=== PATIENT | female | born 1980 | race Caucasian/White ===

== ENCOUNTER 2024-11-18 06:43 | Inpatient (IN) | payer OTHER ==
[~2024-11-18] VITALS: Ht 162.6 cm; Wt 78.9 kg
[2024-11-18] MEDS: ONDANSETRON HCL 4MG/2ML INJ IV ONE (07:35)
[2024-11-18] MEDS: LACTATED RINGERS 1,000 ML IV SCH (07:35)
[2024-11-18 07:53] LABS: CREATININE 0.8 mg/dL (0.6-1.0); UREA NITROGEN BLOOD 15 mg/dL (9-23)
[2024-11-18 07:54] LABS: TROPONIN I HIGH SENSITIVITY < 4 ng/L (3.0-34)
[2024-11-18 07:55] LABS: ASPARTATE AMINOTRANSFERASE 20 IU/L (<34); BILIRUBIN DIRECT < 0.1 mg/dL (<=3.0); BILIRUBIN TOTAL 0.2 mg/dL (0.1-1.0)
[2024-11-18 07:56] LABS: BASOPHILS % 0.6 % (0.0-2.0); EOSINOPHILS % 2.3 % (0.0-5.0); HEMATOCRIT. 41.4 % (36.0-48.0); HEMOGLOBIN. 14.0 g/dL (12.0-16.0); LYMPHOCYTES % 21.9 % (20.0-50.0); MEAN PLATELET VOLUME 7.8 fl (7.4-10.4); MONOCYTES % 6.6 % (2.0-8.0); NEUTROPHILS % 68.6 % (40.0-76.0); PLATELET 255 x1000/uL (130-400); PROTEIN TOTAL 6.8 g/dL (6.0-8.3); RED BLOOD CELL COUNT 4.41 mill/uL (4.2-5.4); RED CELL DISTRIBUTION WIDTH 13.1 % (11.6-14.6)
[2024-11-18 08:00] LABS: HCG SCREEN NEGATIVE
[2024-11-18 09:30] VITALS: BP 99/53; PULSE 66; RESP 18; TEMP 36.3068
[2024-11-18] MEDS ORDERED: CLONIDINE 0.1MG TABLET PO PRN (09:30)
[2024-11-18] MEDS ORDERED: MAGNESIUM/ALUMINUM HYDROXIDE/SIMETHICONE 30ML UDC PO PRN (09:30)
[2024-11-18] MEDS ORDERED: DOCUSATE SODIUM 100MG CAPSULE PO PRN (09:30)
[2024-11-18] MEDS ORDERED: GUAIFENESIN 200MG/10ML SUGAR FREE UDC PO PRN (09:30)
[2024-11-18] MEDS ORDERED: ONDANSETRON HCL 4MG/2ML INJ IV PRN (09:30)
[2024-11-18] MEDS ORDERED: IPRATROPIUM/ALBUTEROL 0.5-3(2.5)MG/3ML NEB HHN PRN (09:30)
[2024-11-18] MEDS ORDERED: ACETAMINOPHEN 325MG TABLET PO PRN ×2 (09:30)
[2024-11-18] MEDS: SERTRALINE HCL 50MG TABLET PO SCH (10:00)
[2024-11-18] MEDS ORDERED: LORAZEPAM 2MG/ML UD SYRINGE IV PRN (10:15)
[2024-11-18 13:08] LABS: PHOSPHORUS 2.6 mg/dL (2.5-4.9)
[2024-11-18 16:00] VITALS: BP 113/69; PULSE 60; RESP 18; TEMP 36.2; O2SAT 98
[2024-11-18 17:40] LABS: TROPONIN I HIGH SENSITIVITY < 4 ng/L (3.0-34)
[2024-11-18] MEDS ORDERED: TRAZ-251 PO (18:48)
[2024-11-18] MEDS ORDERED: SERT25TA PO (18:48)
[2024-11-18 20:00] VITALS: BP 119/76; PULSE 76; RESP 18; TEMP 36.9; O2SAT 99
[2024-11-18] MEDS: TRAZODONE HCL 50MG TABLET PO SCH (20:53)
[2024-11-19] VITALS: BP 98/77; PULSE 76; RESP 18; TEMP 36.8; O2SAT 99
[2024-11-19 04:00] VITALS: BP 94/86; PULSE 70; RESP 17; TEMP 36.6; O2SAT 99
[2024-11-19] MEDS ORDERED: SODIUM CHLORIDE 0.9% 1,000 ML IV SCH (08:00)
[2024-11-19 08:02] LABS: CREATININE 0.8 mg/dL (0.6-1.0); TRIGLYCERIDE 137 mg/dL (0-150)
[2024-11-19 08:03] LABS: LDL CHOLESTEROL 98 mg/dL (5-100); UREA NITROGEN BLOOD 12 mg/dL (9-23)
[2024-11-19 08:17] LABS: BASOPHILS % 0.5 % (0.0-2.0); EOSINOPHILS % 3.3 % (0.0-5.0); HEMATOCRIT. 40.6 % (36.0-48.0); HEMOGLOBIN. 13.7 g/dL (12.0-16.0); LYMPHOCYTES % 33.2 % (20.0-50.0); MEAN PLATELET VOLUME 7.8 fl (7.4-10.4); MONOCYTES % 7.8 % (2.0-8.0); NEUTROPHILS % 55.2 % (40.0-76.0); PLATELET 232 x1000/uL (130-400); RED BLOOD CELL COUNT 4.33 mill/uL (4.2-5.4); RED CELL DISTRIBUTION WIDTH 13.2 % (11.6-14.6)
[2024-11-19 08:26] VITALS: BP 102/55; PULSE 64; RESP 17; TEMP 36.6; O2SAT 98
[2024-11-19 12:00] VITALS: BP 120/77; PULSE 67; RESP 16; TEMP 36.5; O2SAT 97
[2024-11-19 16:00] VITALS: BP 111/71; PULSE 70; RESP 17; TEMP 36.6; O2SAT 98
[2024-11-19 16:06] VITALS: BP 111/71; PULSE 70; TEMP 97.8; O2SAT 98
== END 2024-11-19 18:05 | disposition home or self-care (01) | DRG 101 ==
LOC: ER 06:43 → 6WST 08:25 → ENRESERV 08:53
PROVIDERS: ADMIT Internal Medicine; ATTEND Internal Medicine
DX: R56.9 Unspecified convulsions (principal); K50.90 Crohn's disease, unspecified, without complications; F41.9 Anxiety disorder, unspecified; Z85.3 Personal history of malignant neoplasm of breast; Z92.3 Personal history of irradiation
CPT/HCPCS: 36415; 71045; 80048; 80061; 80076; 83735; 84100; 84443; 84484; 84703; 85025; 85379; 93005; 99285; J2405; J7030